=== PATIENT | female | born 1965 | race Caucasian/White ===

== ENCOUNTER → 2016-10-26 | Outpatient (CLI) | payer OTHER ==
[2016-10-26 16:47] LABS: URINE APPEARANCE CLEAR (CLEAR); URINE BILIRUBIN NEG (NEG); URINE COLOR YELLOW; URINE NITRITE NEG (NEG); URINE PH 6.5 (4.5-7.5); URINE SPECIFIC GRAVITY 1.011 (1.000-1.030); UROBILINOGEN NEG (NEG)
[2016-10-26 16:49] LABS: MANUAL MICROSCOPIC REQUIRED? NO; REVIEW REQ? NO
[2016-10-26 17:04] LABS: ALT/SGPT 24 U/L (12-78); BLOOD UREA NITROGEN 8 mg/dl (7-18); BUN/CREATININE RATIO 9.6 (10-20); CARBON DIOXIDE 27 mmol/L (21-32); CHLORIDE 106 mmol/L (98-107); GLUCOSE 77 mg/dl (70-99); POTASSIUM 3.9 mmol/L (3.5-5.1); SODIUM 141 mmol/L (136-145)
[2016-10-26 17:14] LABS: ALB/GLOB RATIO 1.1 (0.9-2); ALKALINE PHOSPHATASE 55 U/L (45-117); AST/SGOT 16 U/L (15-37); THYROID STIMULATING HORMONE 0.633 uIu/ml (0.300-4.500)
== END | disposition home or self-care (01) ==
LOC: C.LABBFT 12:06
PROVIDERS: ATTEND Internal Medicine
DX: I10 Essential (primary) hypertension (principal)

== ENCOUNTER → 2016-11-09 | Outpatient (CLI) | payer OTHER ==
--- NOTE | 2016-11-09 17:56 | ECHOCARDIOGRAM REPORT ---
*NOTICE TO RECEIVING DEMOCRAT AGENCY This information is strictly Confidential and protected under [place] law. [place] law prohibits you from making any further disclosure of this information unless further disclosure is expressly permitted by the written consent of the person to whom it pertains or is authorized by law. A general authorization for the release of medical or other information is not sufficient for this purpose. Hospital accepts no responsibility if the information is made available to any other person, INCLUDING THE PATIENT. Interpretation Summary * Name: PARK NICOLE Study Date: 11/09/2016 02:16 PM BP: 149/82 mmHg * Patient Location: [facility] ([facility] HR: 79 * : 1965 (M/d/yyyy) Gender: Female Height: 65 in * Age: 51 yrs Ethnicity: [place] Weight: 225 lb * Ordering Physician: Frederick Davis * Referring Physician: Frederick Davis * Performed By: Smita Abdullahi RCS * * Reason For Study: HIGH BLOOD PRESSURE * BSA: 2.1 m2 * -- Conclusions -- * There is borderline concentric left ventricular hypertrophy. * Left ventricular systolic function is normal. * The left atrium is mildly dilated. * Grade I diastolic dysfunction, (abnormal relaxation pattern). Procedure Details * A complete two-dimensional transthoracic echocardiogram was performed (2D, M-mode, Doppler and color flow Doppler). Left Ventricle * The left ventricle is normal in size. * There is borderline concentric left ventricular hypertrophy. * Left ventricular systolic function is normal. * Ejection Fraction = 60-65%. Right Ventricle * The right ventricle is borderline dilated. * The right ventricular systolic function is normal. Atria * The left atrium is mildly dilated. * Right atrial size is normal. Mitral Valve * The mitral valve is grossly normal. * Significant mitral regurgitation is absent. Tricuspid Valve * The tricuspid valve is not well visualized. Aortic Valve * The aortic valve is not well visualized. * No hemodynamically significant valvular aortic stenosis. * There is no significant aortic regurgitation. Great Vessels * The aortic root is normal size. Pericardium/Pleural * There is no pericardial effusion. Great Vessels * Normal inferior vena cava size and collapsability with sniff indicates a normal right atrial pressure of 3 mmHg Left Ventricular Diastolic Function * Grade I diastolic dysfunction, (abnormal relaxation pattern). MMode 2D Measurements and Calculations IVSd 1.3 cm IVSs 1.4 cm LVIDd 4.7 cm LVIDs 3.3 cm LVPWd 1.2 cm LVPWs 1.2 cm IVS/LVPW 1.1 FS 31.1 % EDV(Teich) 103.6 ml ESV(Teich) 42.8 ml EF(Teich) 58.7 % EDV(cubed) 105.4 ml ESV(cubed) 34.6 ml EF(cubed) 67.2 % % IVS thick 13.3 % % LVPW thick 4.0 % LV mass(C)d 218.6 grams LV mass(C)dI 105.1 grams/m\S\2 LV mass(C)s 143.6 grams LV mass(C)sI 69.0 grams/m\S\2 SV(Teich) 60.8 ml SI(Teich) 29.3 ml/m\S\2 SV(cubed) 70.9 ml SI(cubed) 34.1 ml/m\S\2 Ao root diam 3.4 cm Ao root area 8.9 cm\S\2 LA dimension 4.3 cm LA/Ao 1.3 LVOT diam 2.2 cm LVOT area 3.8 cm\S\2 LVAd ap4 35.3 cm\S\2 LVLd ap4 8.4 cm EDV(MOD-sp4) 122.0 ml EDV(sp4-el) 125.9 ml LVAs ap4 20.5 cm\S\2 LVLs ap4 6.4 cm ESV(MOD-sp4) 55.9 ml ESV(sp4-el) 55.6 ml EF(MOD-sp4) 54.1 % EF(sp4-el) 55.8 % LVAd ap2 23.1 cm\S\2 LVLd ap2 6.7 cm EDV(MOD-sp2) 64.8 ml EDV(sp2-el) 67.6 ml LVAs ap2 14.2 cm\S\2 LVLs ap2 5.5 cm ESV(MOD-sp2) 31.8 ml ESV(sp2-el) 31.0 ml EF(MOD-sp2) 50.9 % EF(sp2-el) 54.1 % LVLd %diff -25.15 % EDV(MOD-bp) 98.7 ml LVLs %diff -16.34 % ESV(MOD-bp) 45.2 ml EF(MOD-bp) 54.2 % SV(MOD-sp4) 66.1 ml SI(MOD-sp4) 31.8 ml/m\S\2 SV(MOD-sp2) 33.0 ml SI(MOD-sp2) 15.9 ml/m\S\2 SV(MOD-bp) 53.5 ml SI(MOD-bp) 25.7 ml/m\S\2 SV(sp4-el) 70.3 ml SI(sp4-el) 33.8 ml/m\S\2 SV(sp2-el) 36.5 ml SI(sp2-el) 17.6 ml/m\S\2 Doppler Measurements and Calculations MV E max mason 76.4 cm/sec MV A max mason 85.9 cm/sec MV E/A 0.89 MV P1/2t max mason 95.8 cm/sec MV P1/2t 57.5 msec MVA(P1/2t) 3.8 cm\S\2 MV dec slope 488.1 cm/sec\S\2 MV dec time 0.20 sec Ao V2 max 129.3 cm/sec Ao max PG 6.7 mmHg Ao max PG (full) 4.5 mmHg KIRILL(V,A) 2.2 cm\S\2 KIRILL(V,D) 2.2 cm\S\2 LV V1 max PG 2.2 mmHg LV V1 max 74.1 cm/sec PA V2 max 107.1 cm/sec PA max PG 4.6 mmHg
== END | disposition home or self-care (01) ==
LOC: C.CPL 13:59
PROVIDERS: ATTEND Internal Medicine
DX: I10 Essential (primary) hypertension (principal)

== ENCOUNTER → 2017-11-22 | Outpatient (CLI) | payer OTHER ==
[2017-11-22 17:46] LABS: BLOOD UREA NITROGEN 6 mg/dl (7-18); CALCIUM 9.1 mg/dl (8.5-10.1); CARBON DIOXIDE 26 mmol/L (21-32); CREATININE 0.89 mg/dl (0.60-1.20); GLUCOSE 91 mg/dl (70-99); POTASSIUM 4.1 mmol/L (3.5-5.1); SODIUM 139 mmol/L (136-145)
[2017-11-22 17:49] LABS: CHOLESTEROL 181 mg/dl (0-200); LDL CHOLESTEROL CALCULATED 97 mg/dl
== END | disposition home or self-care (01) ==
LOC: C.LABBFT 12:02
PROVIDERS: ATTEND Physician Assistant Medical
DX: I10 Essential (primary) hypertension (principal); E78.5 Hyperlipidemia, unspecified